=== PATIENT | female | born 1975 | race Two or more races ===

== ENCOUNTER 2018-08-24 16:13 | Emergency (ER) | payer SELFPAY ==
[~2018-08-24] VITALS: Ht 160 cm; Wt 75.0 kg
[2018-08-24] MEDS ORDERED: KETOROLAC 30MG/ML VIAL IM STA (16:54)
[2018-08-24] MEDS ORDERED: MORPHINE SULFATE 4 MG/ML CPJ (NOT FOR IM USE) IV ONE ×2 (17:00→19:45)
[2018-08-24] MEDS ORDERED: ASPIRIN 81MG TABLET PO ONE (17:00)
[2018-08-24 17:36] LABS: BASOPHILS % 0.7 % (0.0-2.0); EOSINOPHILS % 1.1 % (0.0-5.0); HEMATOCRIT. 40.4 % (36.0-48.0); HEMOGLOBIN. 13.8 g/dL (12.0-16.0); LYMPHOCYTES % 48.7 % (20.0-50.0); MEAN CORPUSCULAR HEMOGLOBIN 29.6 pg (28.0-32.0); MEAN CORPUSCULAR VOLUME 86.9 fL (81.0-99.0); MEAN PLATELET VOLUME 8.8 fl (7.4-10.4); MONOCYTES % 4.3 % (2.0-8.0); NEUTROPHILS % 45.2 % (40.0-76.0); PLATELET 331 x1000/uL (130-400); RED BLOOD CELL COUNT 4.64 mill/uL (4.2-5.4); RED CELL DISTRIBUTION WIDTH 13.4 % (11.6-14.6)
[2018-08-24 17:37] LABS: CHLORIDE 107 mEq/L (98-107)
[2018-08-24] MEDS ORDERED: KETOROLAC 30MG/ML VIAL IM ONE (18:30)
[2018-08-24 21:15] LABS: METHADONE URINE SCREEN NEGATIVE (NEGATIVE); OPIATES URINE SCREEN NEGATIVE (NEGATIVE)
[2018-08-24 21:16] LABS: *AMPHETAMINES SCREEN URINE NEGATIVE (NEGATIVE); *BARBITURATES SCREEN URINE NEGATIVE (NEGATIVE); *BENZODIAZEPINES SCREEN URINE NEGATIVE (NEGATIVE); *COCAINE SCREEN URINE NEGATIVE (NEGATIVE); CANNABINOID URINE SCREEN NEGATIVE (NEGATIVE); PHENCYCLIDINE URINE SCREEN NEGATIVE (NEGATIVE)
[2018-08-24 21:25] VITALS: BP 144/71
== END 2018-08-24 21:25 | disposition home or self-care (01) ==
LOC: ER 16:13
DX: M54.89 Other dorsalgia (principal); R07.89 Other chest pain; I10 Essential (primary) hypertension; E11.9 Type 2 diabetes mellitus without complications; F32.89 Other specified depressive episodes; F43.29 Adjustment disorder with other symptoms
CPT/HCPCS: 36415; 71045; 80053; 80305; 81025; 83880; 84484; 85025; 85379; 93005; 96374; 99284; J2270